=== PATIENT | male | born 1965 | race Caucasian/White ===

== ENCOUNTER 2018-10-13 09:04 | Emergency (ER) | payer SELFPAY ==
[2018-10-13 09:54] VITALS: BP 145/79
--- NOTE | 2018-10-13 11:25 | UC ---
Abdominal Pain Male HPI - HPI Summary HPI Summary: severe abdominal pain x 4 days had constipation for the past 4 days with abdominal cramping has been taking otc stool softener , now having diarrhea with sever lower abdominal pain pain is 8 out of 10 , no radiation , nothing makes it better, no vomiting, + constipation and diarrhea, no urinary sx no fever , + chills - History of Current Complaint Chief Complaint: UCGI Stated Complaint: CONSTIPATION FEVER STOMACH PAIN Time Seen by Provider: 10/13/18 09:58 Hx Obtained From: Patient Onset/Duration: Gradual Onset, Lasting Days - 4, Still Present Timing: Constant Severity Initially: Moderate Severity Currently: Severe Pain Intensity: 8 Pain Scale Used: 0-10 Numeric Location: Diffuse Radiates: No Character: Cramping Aggravating Factor(s): Nothing Alleviating Factor(s): Nothing Associated Signs And Symptoms: Positive: Constipation, Decreased Appetite, Nausea, Vomiting, Diarrhea. Negative: Diaphoresis, Fever, Cough, Chest Pain, Dizzy, Back Pain, Blood in Stool, Urinary Symptoms, Penile Discharge - Allergies/Home Medications Allergies/Adverse Reactions: Allergies Allergy/AdvReac Type Severity Reaction Status Date / Time No Known Allergies Allergy Verified 10/13/18 09:54 Home Medications: Home Medications NK [No Home Medications Reported] 10/13/18 [History Confirmed 10/13/18] PMH/Surg Hx/FS Hx/Imm Hx Previously Healthy: Yes - Surgical History Surgical History: None - Family History Known Family History: Negative: Diabetes - Social History Alcohol Use: Rare Substance Use Type: Marijuana Substance Use Comment - Amount & Last Used: week ago Smoking Status (MU): Heavy Every Day Tobacco Smoker Type: Cigarettes Amount Used/How Often: 1 ppd Length of Time of Smoking/Using Tobacco: since 19, 20 years of age Review of Systems All Other Systems Reviewed And Are Negative: Yes Constitutional: Positive: Negative Skin: Positive: Negative Eyes: Positive: Negative ENT: Positive: Negative Respiratory: Positive: Negative Cardiovascular: Positive: Negative Gastrointestinal: Positive: Abdominal Pain, Vomiting, Diarrhea, Nausea Motor: Positive: Weakness Is Patient Immunocompromised?: No Physical Exam Triage Information Reviewed: Yes Appearance: Ill-Appearing, Pain Distress Vital Signs: Initial Vital Signs Temp 99.8 F 10/13/18 09:46 Pulse 127 10/13/18 09:46 Resp 18 10/13/18 09:46 BP 145/79 10/13/18 09:46 Pulse Ox 99 10/13/18 09:46 Vital Signs Reviewed: Yes Eyes: Positive: Conjunctiva Clear ENT: Positive: Normal ENT inspection, Hearing grossly normal, Pharynx normal Neck: Positive: Supple, Nontender, No Lymphadenopathy Respiratory: Positive: Chest non-tender, Lungs clear, Normal breath sounds Cardiovascular: Positive: Tachycardia Abdomen Description: Positive: Distended, Guarding. Negative: CVA Tenderness (R ), CVA Tenderness (L) Bowel Sounds: Positive: Present Skin Exam: Normal Abd Pain Male Course/Dx - Differential Dx/Clinical Impression Provider Diagnosis: Abdominal pain Discharge - Sign-Out/Discharge Documenting (check all that apply): Patient Departure All imaging exams completed and their final reports reviewed: No Studies - Discharge Plan Condition: Stable Disposition: HOME Patient Education Materials: Acute Abdominal Pain (ED) Referrals: No Primary Care Phys,NOPCP [Primary Care Provider] - Additional Instructions: severe lower abdominal pain please go to [facility] ED for evaluation and tx of severe abdominal pain - Billing Disposition and Condition Condition: STABLE Disposition: Home
== END 2018-10-13 10:06 | disposition home or self-care (01) ==
LOC: UCCORT 09:04
DX: R10.9 Unspecified abdominal pain (principal); F17.210 Nicotine dependence, cigarettes, uncomplicated
CPT/HCPCS: 99202; G0463